=== PATIENT | female | born 1955 | race Two or more races ===

== ENCOUNTER 2022-05-05 07:34 | Outpatient (CLI) | payer OTHER | END 2022-05-05 07:41 | disposition home or self-care (01) | LOC: SONOGRAMA 07:34 | PROVIDERS: ATTEND Internal Medicine | DX: K80.20 Calculus of gallbladder without cholecystitis without obstruction (principal); R31.9 Hematuria, unspecified; K82.8 Other specified diseases of gallbladder; G62.9 Polyneuropathy, unspecified; R73.03 Prediabetes; E55.9 Vitamin D deficiency, unspecified; K29.70 Gastritis, unspecified, without bleeding ==

== ENCOUNTER 2022-06-02 11:13 | Outpatient (CLI) | payer OTHER | END 2022-06-02 11:28 | disposition home or self-care (01) | LOC: MRI 11:13 | PROVIDERS: ATTEND Internal Medicine | DX: M51.16 Intervertebral disc disorders with radiculopathy, lumbar region (principal); R26.2 Difficulty in walking, not elsewhere classified | CPT/HCPCS: 72158 ==

== ENCOUNTER 2022-07-15 10:41 | Outpatient (CLI) | payer OTHER | END 2022-07-15 10:42 | disposition home or self-care (01) | LOC: LAB 10:41 | PROVIDERS: ATTEND Physical Medicine & Rehabilitation | DX: R53.83 Other fatigue (principal); R53.1 Weakness; N95.1 Menopausal and female climacteric states; E03.4 Atrophy of thyroid (acquired); E55.9 Vitamin D deficiency, unspecified; I10 Essential (primary) hypertension; R70.0 Elevated erythrocyte sedimentation rate ==

== ENCOUNTER → 2023-01-20 08:33 | Outpatient (CLI) | payer OTHER ==
[2023-01-20 09:21] LABS: HEMOGLOBIN 14.5 g/dL (12.0-15.00); MEAN CORPUSCULAR HEMOGLOBIN 31.6 pg (27.00-32.0); MEAN CORPUSCULAR HGB CONC 32.9 g/dl (32.0-36.0); PLATELET COUNT 201 K/uL (150-450); RED BLOOD COUNT 4.59 M/uL (4.00-6.00)
[2023-01-20 09:38] LABS: ERYTHROCYTE SEDIMENTATION RATE 23 mm/hr
[2023-01-20 10:25] LABS: ALBUMIN 3.4 gm/dL (3.4-5.0); BILIRUBIN TOTAL 0.38 mg/dL (0.3-1.2); CALCIUM 8.7 mg/dL (8.5-10.1); CHOL HDL RATIO 2.7 (0-5.0); CREATININE SERUM 0.96 mg/dL (0.55-1.02); FREE TRIODOTIRONINE 2.45 pg/ml (2.18-3.98); GFR 57.63; GLOBULINA 3.7 G/DL (2.4-3.5); POTASSIUM 3.81 mEq/L (3.5-5.1); TOTAL PROTEIN 7.1 gm/dL (6.4-8.2)
[2023-01-20 10:26] LABS: C-REACTIVE PROTEIN 1.28 MG/DL (0.00-0.29)
[2023-01-20 10:27] LABS: TSH 4.98 uIU/mL (0.358-3.74)
== END | disposition home or self-care (01) ==
LOC: LAB 08:33
DX: E78.01 Familial hypercholesterolemia (principal); E72.11 Homocystinuria

== ENCOUNTER 2023-04-20 12:56 | Outpatient (CLI) | payer OTHER ==
[~2023-04-20 12:56] MED LIST: ALEVE220 M1 PO; CARAFATE1 GM PO; COSOPT PF EYE1 EACH OP; DUI500 PO; PEPCID AC20 MG PO; PERCOCET 5-3251 EACH PO
== END 2023-04-20 13:04 | disposition home or self-care (01) ==
LOC: MAMO-SONO 12:56
DX: R26.2 Difficulty in walking, not elsewhere classified (principal); M51.16 Intervertebral disc disorders with radiculopathy, lumbar region; T78.03XA Anaphylactic reaction due to other fish, initial encounter; K80.20 Calculus of gallbladder without cholecystitis without obstruction; R31.9 Hematuria, unspecified; K82.8 Other specified diseases of gallbladder; G62.9 Polyneuropathy, unspecified; R73.03 Prediabetes; E55.9 Vitamin D deficiency, unspecified; K29.70 Gastritis, unspecified, without bleeding

== ENCOUNTER 2023-04-25 10:41 | Outpatient (CLI) | payer OTHER | END 2023-04-25 10:49 | disposition home or self-care (01) | LOC: RAD 10:41 | PROVIDERS: ATTEND Internal Medicine | DX: R26.2 Difficulty in walking, not elsewhere classified (principal); M51.16 Intervertebral disc disorders with radiculopathy, lumbar region; T78.03XA Anaphylactic reaction due to other fish, initial encounter; K80.20 Calculus of gallbladder without cholecystitis without obstruction; R31.9 Hematuria, unspecified; K82.8 Other specified diseases of gallbladder; G62.9 Polyneuropathy, unspecified; R73.03 Prediabetes; E55.9 Vitamin D deficiency, unspecified; K29.70 Gastritis, unspecified, without bleeding ==

== ENCOUNTER 2023-05-26 12:30 | Outpatient (CLI) | payer OTHER | END 2023-05-26 12:36 | disposition home or self-care (01) | LOC: MRI 12:30 | DX: M25.512 Pain in left shoulder (principal) | CPT/HCPCS: 73221 ==

== ENCOUNTER → 2023-06-22 09:20 | Outpatient (CLI) | payer OTHER ==
[2023-06-22 10:37] LABS: HEMATOCRIT 41.8 % (36.0-45.00); HEMOGLOBIN 14.3 g/dL (12.0-15.00); MEAN CELL VOLUME 95.9 fL (80.00-100.00); MEAN CORPUSCULAR HEMOGLOBIN 32.9 pg (27.00-32.0); MEAN CORPUSCULAR HGB CONC 34.3 g/dl (32.0-36.0); PLATELET COUNT 215 K/uL (150-450); RED BLOOD COUNT 4.36 M/uL (4.00-6.00); RED CELL DISTRIBUTION WIDTH 13.6 % (11.5-14.5)
[2023-06-22 10:51] LABS: ERYTHROCYTE SEDIMENTATION RATE 19 mm/hr
[2023-06-22 10:53] LABS: URINE APPEARANCE Clear; URINE BILIRRUBIN Negative (NEGATIVE); URINE BLOOD Large; URINE COLOR Yellow; URINE GLUCOSE Negative (NEGATIVE); URINE LEUKOCYTE Moderate; URINE NITRATE Negative; URINE PROTEIN Negative (NEGATIVE); URINE UROBILINOGEN 0.2 E.U./dl
[2023-06-22 10:57] LABS: URINE BACTERIA 64.2 uL (0.0-1933); URINE EPITHELIAL CELLS 10.6 uL (0.0-38.8); URINE RBC 57.4 uL (0.0-20.8); URINE WBC 89.3 uL (0.0-23.2)
[2023-06-22 11:24] LABS: ALBUMIN 3.6 gm/dL (3.4-5.0); BILIRUBIN TOTAL 0.52 mg/dL (0.3-1.2); CALCIUM 8.9 mg/dL (8.5-10.1); CREATININE SERUM 1.02 mg/dL (0.55-1.02); FREE TRIODOTIRONINE 2.21 pg/ml (2.18-3.98); GFR 53.57; GLOBULINA 3.6 G/DL (2.4-3.5); POTASSIUM 4.14 mEq/L (3.5-5.1); T4 FREE 0.93 NG/ML (0.76-1.46); TOTAL PROTEIN 7.2 gm/dL (6.4-8.2); TSH 3.02 uIU/mL (0.358-3.74)
[2023-06-22 11:26] LABS: C-REACTIVE PROTEIN 0.39 MG/DL (0.00-0.29)
[2023-06-24 05:06] LABS: ESTRADIOL SERUM 19.4 pg/mL (0.0-54.7); PROGESTERONA 2.3 ng/mL (.)
[2023-06-24 09:09] LABS: HOMOCYSTEINE 9.7 umol/L (0.0-17.2)
== END | disposition home or self-care (01) ==
LOC: LAB 09:20
PROVIDERS: ATTEND Internal Medicine
DX: K80.20 Calculus of gallbladder without cholecystitis without obstruction (principal); R31.9 Hematuria, unspecified; K82.8 Other specified diseases of gallbladder; G62.9 Polyneuropathy, unspecified; R73.03 Prediabetes; E55.9 Vitamin D deficiency, unspecified; K29.70 Gastritis, unspecified, without bleeding; R73.09 Other abnormal glucose; E78.01 Familial hypercholesterolemia; E72.11 Homocystinuria; R53.83 Other fatigue; R53.1 Weakness; N95.1 Menopausal and female climacteric states; E03.4 Atrophy of thyroid (acquired); I10 Essential (primary) hypertension; R70.0 Elevated erythrocyte sedimentation rate

== ENCOUNTER 2024-11-01 16:45 | Emergency (ER) | payer OTHER ==
[~2024-11-01] VITALS: Ht 157.5 cm; Wt 68.0 kg
[2024-11-01 21:28] VITALS: BP 109/64; O2SAT 99
== END 2024-11-01 21:31 | disposition home or self-care (01) ==
LOC: ER 16:45
DX: S40.021A Contusion of right upper arm, initial encounter (principal); W19.XXXA Unspecified fall, initial encounter; Y93.89 Activity, other specified; Y92.89 Other specified places as the place of occurrence of the external cause; Y99.9 Unspecified external cause status; Z96.631 Presence of right artificial wrist joint; Z91.013 Allergy to seafood; Z91.048 Other nonmedicinal substance allergy status